=== PATIENT | female | born 1945 | race Caucasian/White ===

== ENCOUNTER 2019-03-06 10:25 | Day surgery (SDC) | payer MEDICARE ==
[2019-03-05 10:32] VITALS: BMI 24.5
[~2019-03-06 10:25] MED LIST: LACTATED RINGERS 1,000 ML IV SCH; LIDOCAINE 1% 20 ML VIAL (10MG/ML) FOR IV START INTRADERMA PRN
[2019-03-06 10:45] VITALS: TEMP 98.3
[2019-03-06] MEDS ORDERED: PROPOFOL 10 MG/ML 20 ML VIAL IV ONE (11:02)
[2019-03-06] MEDS ORDERED: LIDOCAINE 1% INJ 10MG/ML (20 ML MDV) ONE (11:02)
--- NOTE | 2019-03-06 11:57 | P.PCN ---
Date of Procedure: 03/06/19 Description of Procedure: Brief history: Patient is a pleasant scheduled for an elective upper endoscopy as well as colonoscopy as a part of evaluation of GERD and history of polyps. The patient reports symptoms of reflux and solid food dysphagia. Previous jaundice. Symptoms are recently worse patient recently started on omeprazole therapy. Her last colonoscopy was in 2018 a 17 mm to the ascending colon. Procedure performed: Esophagogastroduodenoscopy with biopsy and [id number]-[id number] balloon dilation Colonoscopy Estimated blood loss: Minimal. Preoperative diagnosis: Anesthesia: MAC Procedure: After informed consent was obtained from the patient was brought into the endoscopy unit and IV sedation was administered by anesthesia under continuous monitoring. Initially upper endoscopy was done. The Olympus GF 190 video endoscope was inserted inserted into the mouth and esophagus intubated without any difficulty and was gradually advanced into the stomach and duodenum and carefully examined. The bulb and second part of the duodenum appeared normal, with biopsies taken. The scope was then withdrawn into the stomach adequately insufflated with air and upon careful examination the antrum and body, cardia and fundus appeared normal except for some mild scattered erythema suggestive of mild gastritis of the antrum and body with biopsies taken. The scope was then withdrawn into the esophagus. The GE junction was located at 40 cm to the incisors. It appeared regular with no erythema erosions or ulcerations, There was a patent distal Schatzki ring that was dilated with a cvesyuz-jig-fxrue balloon dilator to 15 mm and 16.5 mm sequentially. Rest of the esophagus a ppeared normal, with metastatic esophageal biopsies taken in the setting of dysphagia. Patient tolerated the procedure well. At this time the patient continued to remain sedation. Initial digital rectal examination was normal. Olympus CF 190 video colonoscope was then inserted into the rectum and gradually advanced to the cecum without any difficulty. Careful examination was performed as the scope was gradually being withdrawn. The prep was excellent. The cecum, ascending colon, transverse colon, descending colon, sigmoid colon and rectum appeared normal, except for diffuse darkening of tissue consistent with melanosis coli. Diminutive 2 mm polyps resected from the transverse colon and rectum with cold forceps polypectomy. A few scattered diverticula noted in the sigmoid colon. Retroflexion was performed in the rectum and no lesions were noted. Patient tolerated the procedure well. Impression: 1. Mild gastritis antrum and body, biopsied. Duodenal biopsies. Patent distal esophageal Schatzki's ring dilated with tmutgwo-idd-jgmyz balloon dilator. Mid esophageal biopsies. 2. 2 diminutive polyps removed with cold forceps from the transverse colon and rectum. Melanosis coli. Sigmoid diverticulosis. Recommendations: Findings of this examination were discussed with the patient as well as her . Okay to resume diet. Continue current antacid therapy with the patient to follow-up in gastroenterology for titration as appropriate. Await pathology from polypectomy and biopsies.
[2019-03-06 15:39] VITALS: RESP 18
[2019-03-06 15:53] VITALS: BP 118/75; PULSE 86
== END 2019-03-06 12:35 | disposition home or self-care (01) ==
LOC: ORWHC2ENDO 10:25
PROVIDERS: ATTEND Internal Medicine
DX: Z09 Encounter for follow-up examination after completed treatment for conditions other than malignant neoplasm (principal); D12.3 Benign neoplasm of transverse colon; Z86.010 Personal history of colon polyps; K22.2 Esophageal obstruction; K62.1 Rectal polyp; K57.30 Diverticulosis of large intestine without perforation or abscess without bleeding; K63.89 Other specified diseases of intestine; K29.50 Unspecified chronic gastritis without bleeding; K21.0 Gastro-esophageal reflux disease with esophagitis; G83.9 Paralytic syndrome, unspecified; E07.9 Disorder of thyroid, unspecified; Z88.8 Allergy status to other drugs, medicaments and biological substances; Z90.710 Acquired absence of both cervix and uterus; Z98.890 Other specified postprocedural states; Z79.890 Hormone replacement therapy; Z79.899 Other long term (current) drug therapy; Z80.0 Family history of malignant neoplasm of digestive organs
CPT/HCPCS: 88305; 45380; 43239; 43249; J2001; J2704; C1726

== ENCOUNTER 2022-01-14 07:59 | Emergency (ER) | payer MEDICARE ==
[2022-01-14 08:08] VITALS: BP 112/69; PULSE 90; RESP 16; TEMP 97.1
[2022-01-14] MEDS ORDERED: CIPROFLOXACIN-DEXAMETH 0.3-0.1% DROPS 7.5 ML BTL BOTH EARS STA (08:21)
--- NOTE | 2022-01-14 08:23 | ED ---
ENT HPI - General Chief complaint: ENT Stated complaint: lt ear Time Seen by Provider: 01/14/22 08:02 Source: patient, family, RN notes reviewed Mode of arrival: ambulatory Limitations: no limitations - History of Present Illness Initial comments: This is a 76-year-old female who presents to the emergency department for left ear pain and swelling. Patient states that her ear has been getting progressively worse in terms of pain and swelling over the last 1-2 months. She's been putting all-natural oils in and around the ear with no relief. She states that ibuprofen has been somewhat beneficial. She has an appointment with ear nose and throat at Dr. Vasques's office on February 08, but states that it is getting worse and she is unable to wait. Denies any fevers, chills, sore throat, cough, dyspnea, chest pain, palpitations, abdominal pain, nausea, vomiting, diarrhea, back pain, or headaches. MD complaint: ear pain Onset/Timin -: month(s) Location: L ear - Related Data Home Medications Medication Instructions Recorded Confirmed Omeprazole 20 mg PO DAILY 03/05/19 03/06/19 Thyrotone 1 tab PO DAILY 03/05/19 03/06/19 Previous Rx's Medication Instructions Recorded Amoxicillin 875 mg PO Q12HR 7 Days #14 tablet 01/14/22 Ciprofloxacin HCl/Dexameth 5 drops BOTH EARS BID 10 Days #7.5 01/14/22 [Ciproflox-Dexameth Otic Susp] ml Allergies Allergy/AdvReac Type Severity Reaction Status Date / Time succinylcholine AdvReac PARALIZED Verified 01/14/22 08:08 AFTER PROCEDURE Review of Systems ROS Statement: Those systems with pertinent positive or pertinent negative responses have been documented in the HPI. ROS Other: All systems not noted in ROS Statement are negative. Past Medical History Past Medical History: GERD/Reflux, Thyroid Disorder History of Any Multi-Drug Resistant Organisms: None Reported Past Surgical History: Hysterectomy Additional Past Surgical History / Comment(s): colonoscopy; ovarion cyst removed, HAD BRISTLE FROM WIRE BRUSH REMOVED IN [place] ABOUT 5 YEARS AGO UNDER ANESTHESIA Past Anesthesia/Blood Transfusion Reactions: Previous Problems w/ Anesthesia Additional Past Anesthesia/Blood Transfusion Reaction / Comment(s): DEVELOPED PARALYSIS AFTER HAVING SUCCINYCHOLINE TO REMOVE WIRE BRUSH BRISTLE 5 YEARS AGO IN [place] Past Psychological History: No Psychological Hx Reported Past Alcohol Use History: Occasional Past Drug Use History: None Reported - Past Family History Father Family Medical History: Cancer Mother Family Medical History: Cancer Sister(s) Family Medical History: Cancer General Exam Limitations: no limitations General appearance: alert, in no apparent distress Head exam: Present: atraumatic, normocephalic, normal inspection ENT exam: Present: other (Left TM erythema and bulging with loss of landmarks. Erythema of the external acoustic meatus. Mild swelling of the tragus and pinna.) Respiratory exam: Present: normal lung sounds bilaterally. Absent: respiratory distress, wheezes, rales, rhonchi, stridor Cardiovascular Exam: Present: regular rate, normal rhythm, normal heart sounds. Absent: systolic murmur, diastolic murmur, rubs, gallop, clicks Neurological exam: Present: alert, oriented X3, CN II-XII intact Psychiatric exam: Present: normal affect, normal mood Skin exam: Present: warm, dry, intact, normal color. Absent: rash Course Vital Signs 01/14/22 08:04 Temperature 97.1 F L Pulse Rate 90 Respiratory 16 Rate Blood Pressure 112/69 O2 Sat by Pulse 99 Oximetry Medical Decision Making - Medical Decision Making This is a 76-year-old female who presents to the emergency department with left ear pain. Physical exam is consistent with both an otitis media and an otitis externa. Prescription for amoxicillin and Ciprodex provided. Ciprodex ear drops were provided in the emergency department and she was given a prescription, as the patient states her pharmacy is currently out of most antibiotic eardrops. Her pharmacy is also currently closed, and I am unable to call them to verify what eardrops they have in stock. Advised she alternate with Tylenol and ibuprofen as needed for pain relief. Also advised she keep her appointment with ENT on February 08. Return precautions reviewed in depth, the patient is instructed to return to the emergency department with any new, worsening, or concerning symptoms. Patient verbalized understanding. This case was discussed in detail with the attending ED physician. Presentation, findings, and treatment plan discussed in detail as well. Disposition Clinical Impression: Otitis media, Otitis externa Disposition: HOME SELF-CARE Instructions (If sedation given, give patient instructions): Ear Infection (ED) Additional Instructions: Return to the emergency department with any new, worsening, or concerning symptoms. Take the oral antibiotic as prescribed for 7 days. Use the eardrops as 5 drops in both ears twice daily for 10 days. Follow-up with the ear nose and throat provider as scheduled. Alternate with ibuprofen and Tylenol as needed for pain relief. Prescriptions: Amoxicillin 875 mg PO Q12HR 7 Days #14 tablet Ciprofloxacin HCl/Dexameth [Ciproflox-Dexameth Otic Susp] 5 drops BOTH EARS BID 10 Days #7.5 ml Is patient prescribed a controlled substance at d/c from ED?: No Referrals: Brett Barney DO [Primary Care Provider] - 1-2 days
== END 2022-01-14 09:01 | disposition home or self-care (01) ==
LOC: EC 07:59
DX: H66.92 Otitis media, unspecified, left ear (principal); H60.92 Unspecified otitis externa, left ear; K21.9 Gastro-esophageal reflux disease without esophagitis; E07.9 Disorder of thyroid, unspecified; Z79.899 Other long term (current) drug therapy; Z79.890 Hormone replacement therapy; Z88.8 Allergy status to other drugs, medicaments and biological substances
CPT/HCPCS: 99282

== ENCOUNTER → 2024-05-15 | Outpatient (CLI) | payer MEDICARE ==
--- NOTE | 2024-05-15 09:27 | US ---
EXAMINATION TYPE: US arterial LE single level DATE OF EXAM: 05/15/2024 8:47 AM COMPARISONS: None. CLINICAL INDICATION: Female, 78 years old with history of M62.81 Muscle weakness, generalized; Pain i n legs when standing. TECHNIQUE: Systolic pressures were taken of the upper and lower extremity arteries with ankle-brachia l indices and toe brachial indices calculated bilaterally. History of: Smoker: No Hypertension: No Diabetic: No Hyperlipidemia: No TIA/CVA: No Previous Vascular Surgery: No CAD: No MS: No Vascular Ulcers: No Claudication: No Gangrene: No FINDINGS: Doppler Waveforms: Right: Multiphasic Left: Multiphasic Brachial Artery systolic pressure: Right: 136 Left: 136 Posterior Tibial artery systolic pressure: Right: 153 Left: 142 Dorsalis Pedis artery systolic pressure: Right: 152 Left: 153 Toe artery systolic pressure: Right: Not Performed Left: Not Performed Ankle-Brachial Indices: Right: 1.13 Left:1.13 (Vessel hardening > 1.4; Normal 0.9 - 1.4, Moderate 0.7 - 0.9, Severe 0.5-0.7) IMPRESSION: Normal ankle-brachial brachial indices bilaterally. [facility], , 05/15/2024 9:25 AM
== END | disposition home or self-care (01) ==
LOC: RADUSWWP 08:23
PROVIDERS: ATTEND Family Medicine
DX: M62.81 Muscle weakness (generalized) (principal); M79.606 Pain in leg, unspecified
CPT/HCPCS: 93922